=== PATIENT | female | born 1980 | race Caucasian/White ===

== ENCOUNTER 2016-11-30 18:46 | Emergency (ER) | payer BC, OTHER ==
[~2016-11-30] VITALS: Ht 152.4 cm; Wt 8.0 kg
[2016-11-30 18:59] VITALS: Ht 152.4 cm; Wt 8.0 kg
[2016-11-30] MEDS ORDERED: IBUPROFEN 600 MG TAB PO STA (19:15)
[2016-11-30] MEDS ORDERED: ACETAMINOPHEN IV 1,000 MG in EMPTY BAG 0 ML IV STA (19:15)
[2016-11-30] MEDS ORDERED: SODIUM CHLORIDE 0.9% 1000ML 1,000 ML IV STA (19:15)
--- NOTE | 2016-11-30 19:26 | EMERGENCY ROOM VISIT NOTE ---
History First contact with patient: 19:09 Chief Complaint: FEVER Stated Complaint: HIGH FEVER, NAUSEA History of Present Illness The patient is a 36 year old female who presents to the Emergency Room with complaints of fever. The patient states that when she picked her son up from preschool today, he began to complain of feeling ill. He had a fever and has had vomiting. The patient states that she felt nauseated around 11 AM and around noon she began to have worsening nausea. She also had a fever. She states that her temperature was as high as 104.9F. She reports a sore throat and feeling dizzy. The patient rates her discomfort a 2/10. The patient did not take any antipyretics. She contacted her family doctor and was referred to the emergency department. She denies any neck pain or neck stiffness. She denies any pain in her chest, trouble breathing or cough. She denies any abdominal pain. She denies any urinary symptoms. Review of Systems A 10 system review of systems was completed with positives and pertinent negatives listed in the HPI. Past Medical/Surgical History patient denies Social History Smoking Status: Never Smoker Housing Status: lives with family Current/Historical Medications No Active Prescriptions or Reported Meds Physical Exam Vital Signs Date Time Temp Pulse Resp B/P (MAP) Pulse Ox O2 Delivery O2 Flow Rate FiO2 11/30/16 21:44 101 18 115/51 97 11/30/16 20:45 38.9 117 18 116/50 97 Room Air 11/30/16 18:59 38.7 113 20 152/72 98 Room Air Physical Exam VITALS: Vitals are noted on the nurse's note and reviewed by myself. The patient's temperature is 38.7C. Her heart rate is 113 bpm. GENERAL: This is a 36-year-old female, in no acute distress, nondiaphoretic, well-developed well-nourished. SKIN: The skin was without rashes, erythema, edema, or bruising. Her cheeks are flushed. There is no tenting of the skin. Capillary reflex less than 2 seconds. HEAD: Normocephalic atraumatic. EARS: External auditory canals clear, tympanic membranes pearly rosales without erythema or effusion bilaterally. EYES: Pupils equal round and reactive to light and accommodation. Conjunctivae without injection, sclerae without icterus. Extraocular movements intact. NOSE: Patent, turbinates without inflammation or discharge. MOUTH: Mucous membranes moist. Tonsils are not enlarged. Mild posterior pharyngeal erythema. Uvula midline. Airway patent. Tongue does not deviate. NECK: Supple without nuchal rigidity. No lymphadenopathy. No thyromegaly. Cervical spine is nontender. No JVD. HEART: Regular rate and rhythm without murmurs gallops or rubs. LUNGS: Clear to auscultation bilaterally without wheezes, rales or rhonchi. No retractions or accessory muscle use. ABDOMEN: Positive bowel sounds x 4. Soft, nontender, without masses or organomegaly. MUSCULOSKELETAL: No muscle atrophy, erythema, or edema noted. Full range of motion in all extremities. No tenderness to palpation. Normal gait. Strength 5/5 throughout. NEURO: Patient was alert and oriented to person place and time. No focal neurological deficits. Medical Decision & Procedures ER Provider Diagnostic Interpretation: CHEST 2 VIEWS ROUTINE CLINICAL HISTORY: Fever. COMPARISON STUDY: No previous studies for comparison. FINDINGS: Lung volumes are normal. No pneumothorax or pleural effusion is present. There is no consolidation to suggest pneumonia. Pulmonary vascularity is normal. Cardiomediastinal silhouette is normal. IMPRESSION: No acute cardiopulmonary findings. Laboratory Results 11/30/16 19:31 Red Blood Count 4.35, Mean Corpuscular Volume 85.1, Mean Corpuscular Hemoglobin 28.5, Mean Corpuscular Hemoglobin Concent 33.5, Mean Platelet Volume 10.5, Neutrophils (%) (Auto) 91.6, Lymphocytes (%) (Auto) 6.3, Monocytes (%) (Auto) 1.9, Eosinophils (%) (Auto) 0.1, Basophils (%) (Auto) 0.0, Neutrophils # (Auto) 6.71, Lymphocytes # (Auto) 0.46, Monocytes # (Auto) 0.14, Eosinophils # (Auto) 0.01, Basophils # (Auto) 0.00 11/30/16 19:31 Test 11/30/16 19:31 11/30/16 19:32 11/30/16 19:39 White Blood Count 7.33 K/uL (4.8-10.8) Red Blood Count 4.35 M/uL (4.2-5.4) Hemoglobin 12.4 g/dL (12.0-16.0) Hematocrit 37.0 % (37-47) Mean Corpuscular Volume 85.1 fL (80-100) Mean Corpuscular Hemoglobin 28.5 pg (25-34) Mean Corpuscular Hemoglobin Concent 33.5 g/dl (32-36) Platelet Count 155 K/uL (130-400) Mean Platelet Volume 10.5 fL (7.4-10.4) Neutrophils (%) (Auto) 91.6 % Lymphocytes (%) (Auto) 6.3 % Monocytes (%) (Auto) 1.9 % Eosinophils (%) (Auto) 0.1 % Basophils (%) (Auto) 0.0 % Neutrophils # (Auto) 6.71 K/uL (1.4-6.5) Lymphocytes # (Auto) 0.46 K/uL (1.2-3.4) Monocytes # (Auto) 0.14 K/uL (0.11-0.59) Eosinophils # (Auto) 0.01 K/uL (0-0.5) Basophils # (Auto) 0.00 K/uL (0-0.2) RDW Standard Deviation 41.3 fL (36.4-46.3) RDW Coefficient of Variation 13.3 % (11.5-14.5) Immature Granulocyte % (Auto) 0.1 % Immature Granulocyte # (Auto) 0.01 K/uL (0.00-0.02) Anion Gap 9.0 mmol/L (3-11) Est Creatinine Clear Calc Drug Dose 10.9 ml/min Estimated GFR () 94.2 Estimated GFR (Non- 81.2 BUN/Creatinine Ratio 8.7 (10-20) Calcium Level 8.9 mg/dl (8.5-10.1) Total Bilirubin 0.6 mg/dl (0.2-1) Aspartate Amino Transf (AST/SGOT) 20 U/L (15-37) Alanine Aminotransferase (ALT/SGPT) 21 U/L (12-78) Alkaline Phosphatase 70 U/L (45-117) Total Protein 7.3 gm/dl (6.4-8.2) Albumin 3.9 gm/dl (3.4-5.0) Globulin 3.4 gm/dl (2.5-4.0) Albumin/Globulin Ratio 1.2 (0.9-2) Influenza Type A Antigen Neg for Influ A (NEG) Influenza Type B Antigen Neg for Influ B (NEG) Urine Color YELLOW Urine Appearance CLEAR (CLEAR) Urine pH 6.0 (4.5-7.5) Urine Specific [place] 1.010 (1.000-1.030) Urine Protein NEG (NEG) Urine Glucose (UA) NEG (NEG) Urine Ketones NEG (NEG) Urine Occult Blood NEG (NEG) Urine Nitrite NEG (NEG) Urine Bilirubin NEG (NEG) Urine Urobilinogen NEG (NEG) Urine Leukocyte Esterase NEG (NEG) Medications Administered Medications (Trade) Dose Ordered Sig/Rajwinder Route Start Time Stop Time Status Last Admin Dose Admin Sodium Chloride 1,000 ml @ 999 mls/hr Q1H1M STAT IV 11/30/16 19:15 11/30/16 20:15 DC 11/30/16 19:35 999 MLS/HR Acetaminophen 1000 mg/Empty Bag 100 ml @ 400 mls/hr ONE STAT IV 11/30/16 19:15 11/30/16 19:29 DC 11/30/16 20:08 400 MLS/HR Ibuprofen (Motrin Tab) 600 mg NOW STAT PO 11/30/16 19:15 11/30/16 19:18 DC 11/30/16 20:08 600 MG Procedure The patient was monitored on a groundwater monitoring technician. She initially had a sinus tachycardia but that improved after the above treatment. ED Course The patient was seen and examined. Previous visits were reviewed. The patient was febrile and tachycardic upon arrival. She did not have a leukocytosis. She does not have any significant electrolyte abnormalities. Urinalysis is negative for urinary tract infection. Rapid strep was negative. Influenza was negative. Chest x-ray does not reveal any obvious infiltrate. The patient was hydrated with normal saline solution She was given 600 mg oral Motrin She was given 1 g IV Tylenol The patient's symptoms markedly improved. She was initially tachycardic but her heart rate improved to 101 bpm. Her temperature improved to 37.1C prior to discharge. The patient's cheeks were flushed but she states that this is baseline for her. This likely represents a viral illness. The patient's son has similar symptoms that also started today. She presented to the emergency department because her temperature had been so high at home. She does not have any headache, neck pain, neck stiffness, nuchal rigidity to suggest meningitis. She does not have any chest pain, trouble breathing or cough. She does not have any abdominal pain, abdominal tenderness on examination. The patient was encouraged to alternate Tylenol and Motrin every 3 hours. She should return to the ER with any worsening symptoms. Otherwise, she should recheck with her family doctor by the end of the week if symptoms are not improving. The case was discussed with Dr. Wilson who agrees with the assessment and treatment plan. Medical Decision The differential diagnosis includes influenza, strep pharyngitis, meningitis, pneumonia, bacteremia, SIRS, viral illness, urinary tract infection, among others Medication Reconcilliation Current Medication List: was personally reviewed by me Blood Pressure Screening Patient's blood pressure: Normal blood pressure Blood pressure disposition: Did not require urgent referral Impression Primary Impression: Febrile illness Departure Information Dispostion Home / Self-Care Condition GOOD Prescriptions No Active Prescriptions or Reported Meds Referrals Sukhjinder Franco M.D. (PCP) Patient Instructions ED Fever Control, [facility] Additional Instructions Increase fluids Alternate Tylenol and Motrin every 3 hours Rest Return with any changing or worsening symptoms such as abdominal pain, headache , neck pain, neck stiffness or generalized worsening symptoms Otherwise, recheck with the family doctor at the end of the week if no improvement
[2016-11-30 19:46] LABS: COMPLETE YES; EOS % 0.1 %; IG% 0.1 %; LYMPH % 6.3 %; LYMPH ABS # 0.46 K/uL (1.2-3.4); MEAN CELL VOLUME 85.1 fL (80-100); MEAN CORPUSCULAR HEMOGLOBIN 28.5 pg (25-34); MEAN CORPUSCULAR HGB CONC 33.5 g/dl (32-36); MEAN PLATELET VOLUME 10.5 fL (7.4-10.4); MONO % 1.9 %; NEUT % 91.6 %; PLATELET COUNT 155 K/uL (130-400); RED BLOOD COUNT 4.35 M/uL (4.2-5.4); WHITE BLOOD COUNT 7.33 K/uL (4.8-10.8)
[2016-11-30 19:51] LABS: URINE APPEARANCE CLEAR (CLEAR); URINE BILIRUBIN NEG (NEG); URINE COLOR YELLOW; URINE NITRITE NEG (NEG); UROBILINOGEN NEG (NEG); ZZUR CULT IF INDIC CLEAN CATCH NO
[2016-11-30 19:52] LABS: MANUAL MICROSCOPIC REQUIRED? NO; REVIEW REQ? NO
[2016-11-30 20:05] LABS: BUN/CREATININE RATIO 8.7 (10-20); CALCIUM 8.9 mg/dl (8.5-10.1); CREATININE 0.92 mg/dl (0.60-1.20); POTASSIUM 3.3 mmol/L (3.5-5.1)
[2016-11-30 20:07] LABS: ALB/GLOB RATIO 1.2 (0.9-2)
--- NOTE | 2016-11-30 20:16 | DIAGNOSTIC IMAGING REPORT ---
CHEST 2 VIEWS ROUTINE CLINICAL HISTORY: Fever. COMPARISON STUDY: No previous studies for comparison. FINDINGS: Lung volumes are normal. No pneumothorax or pleural effusion is present. There is no consolidation to suggest pneumonia. Pulmonary vascularity is normal. Cardiomediastinal silhouette is normal. IMPRESSION: No acute cardiopulmonary findings. Electronically signed by: Nicko Cody M.D. 11/30/2016 8:14 PM Dictated Date/Time: 11/30/2016 8:14 PM
[2016-11-30 20:45] VITALS: TEMP 38.9
[2016-11-30 21:44] VITALS: BP 115/51; PULSE 101; O2SAT 97
== END 2016-11-30 21:44 | disposition home or self-care (01) ==
LOC: C.EDB 18:48 → C.EDC 21:44
DX: R50.9 Fever, unspecified (principal)

== ENCOUNTER → 2017-04-20 | Outpatient (CLI) | payer BC | END | disposition home or self-care (01) | LOC: C.PAPS 15:56 | PROVIDERS: ATTEND Obstetrics & Gynecology | DX: Z01.419 Encounter for gynecological examination (general) (routine) without abnormal findings (principal) ==

== ENCOUNTER 2018-05-02 07:47 | Inpatient (IN) ==
[2018-05-02] MEDS ORDERED: LACTATED RINGER'S 1,000 ML IV SCH (08:00)
[2018-05-02] MEDS ORDERED: LACTATED RINGER'S 1,000 ML IV PRN ×3 (08:00→18:33)
[2018-05-02] MEDS ORDERED: OXYTOCIN 30 UNITS/500 ML BAG IV PRN ×2 (08:00→08:01)
[2018-05-02 08:21] LABS: Hematocrit (blood only) 35.4 % (37-47); Hemoglobin 11.8 g/dL (12.0-16.0); Mean Corpuscular Volume 86.3 fL (80-100); Mean Platelet Volume 11.3 fL (7.4-10.4); Platelet Count 143 K/uL (130-400); RDW Coefficient of Variation 14.8 % (11.5-14.5); RDW Standard Deviation 45.9 fL (36.4-46.3); White Blood Count 10.65 K/uL (4.8-10.8)
[2018-05-02 08:22] LABS: Mean Corpuscular Hgb Conc 33.3 g/dL (32-36)
--- NOTE | 2018-05-02 08:25 | History & Physical Report ---
Date of Service May 02, 2018 Assessment & Plan (1) Encounter for induction of labor: Pt is a 38 year old at 39+1 for induction of labor 2/2 hx of fast labor with GBS + mother. - LR @ 125 - Penicillin G IV q4h until delivery - Pitocin 30 units in 500 mls @ 1 mls/hr -> up by 2 - Monitor FHT/toco - Monitor BP - Routine labor care - Anticipate Vaginal , Expectant management History of Present Illness Primary Care Provider: Sukhjinder Mccrackenmeet Pt is a 38 year old with lmp of 08/01/2017 and EDC of 05/08/2018 confirmed by 1st trimester ultrasound on 09/28/2017 at 9+0 who presents at 39+1 for induction of labor 2/2 hx of fast labor with GBS + mother. She currently denies contractions nausea, vomiting, RUQ pain, swelling, headache, blurred vision, vaginal bleeding, or decreased movement. course was significant for hx GBS+and rapid labor without time for administration of abx. Cervical exam today 1.5/50/-3 soft and mid. Pt resting comfortably in bed no acu te complaints. labs First Visit: 16+[address] 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 GYNHX: menearche @ 16, monthly cycles 27-28 days, normal amount and duration, neg pap, no hx PID or STDS PMHX: wisdom teeth extraction, tonsillectomy, depression no meds, chickenpox Allergies: NKDA Review of Systems All systems reviewed & are unremarkable except as noted in HPI & below Physical Exam Constitutional: WD/WN, vitals as above Eyes: normal visual lockett by confrontation Neck: trachea midline, no thyromegaly normal visual inspection Respiratory: normal respiratory effort, lungs clear to auscultation Cardiovascular: Rate/Rhythm: regular rate and regular rhythm Extremities: no calf tenderness Gastrointestinal (Abdomen): normal bowel sounds, soft, nontender, no hepatosplenomegaly (Gravid Belly ) Skin: no rashes, warm and dry Results & Data Laboratory Results 05/02/18 Range/Units 08:12 WBC 10.65 (4.8-10.8) K/uL RBC 4.10 L (4.2-5.4) M/uL Hgb 11.8 L (12.0-16.0) g/dL Hct 35.4 L (37-47) % MCV 86.3 (80-100) fL MCH 28.8 (25-34) pg MCHC 33.3 (32-36) g/dL RDW Std Deviation 45.9 (36.4-46.3) fL RDW Coeff of Pelon 14.8 H (11.5-14.5) % Plt Count 143 (130-400) K/uL MPV 11.3 H (7.4-10.4) fL Medications Administered Current Inpatient Medications Lactated Ringer's (Lr) 1,000 mls @ 999 mls/hr IV .Q1H1M PRN PRN Reason: (Pre-Anesthesia) Stop: 06/01/18 07:59 Lactated Ringer's (Lr) 1,000 mls @ 125 mls/hr IV .Q8H BARBARA Stop: 05/04/18 07:59 Oxytocin (Pitocin) 30 units in 500 mls @ 1 mls/hr IV .Q24H PRN; Protocol PRN Reason: Labor Induction/Augmentation Stop: 05/04/18 08:00 Oxytocin (Pitocin) 30 units in 500 mls @ 333.333 mls/hr IV .Q1H30M PRN; Protocol PRN Reason: Bleeding Control Stop: 06/01/18 07:59 Penicillin G Potassium 3 mu/ (Dextrose) 106 mls @ 100 mls/hr IV Q4H PRN PRN Reason: Give until delivery Stop: 05/12/18 08:00 Penicillin G Potassium 6 mu/ (Dextrose) 262 mls @ 262 mls/hr IV NOW STA Stop: 05/02/18 09:00 Lactated Ringer's (Lr) 1,000 mls @ 999 mls/hr IV .Q1H1M PRN PRN Reason: Tachysystole Stop: 05/04/18 08:00 Code Status & VTE Plan Code Status Full Code Supervising Physician Co-Signing Physician Notes This patient is not GBS positive. She does have a history of an with GBS sepsis therefore is indicated for prophylactic antibiotics during this delivery without any screening for or regard to current GBS status. IOL will proceed with PCN IV per protocol, pitocin titration per protocol, and AROM after 2nd dose Abx. Resident Activity Tracking Resident Involvement: Resident Care Provided Care Provided: Adult Hospital Medicine
[2018-05-02] MEDS ORDERED: PENICILLIN G POTASSIUM 6 MU in DEXTROSE 5% 250 ML IV ONE (08:45)
[2018-05-02] MEDS: PENICILLIN G POTASSIUM 3 MU in DEXTROSE 5% 100 ML IV PRN ×2 (12:42→16:48)
--- NOTE | 2018-05-02 14:44 | Labor Progress Brief Note ---
Date of Service May 02, 2018 Subjective Delayed note due to other patient care. Tolerating contractions well. Assessment & Plan (1) Encounter for induction of labor: Continue pitocin, GBS abx, epidural on request. Physical Exam Vital Signs (Past 24 Hours): Last Vital Signs Temp 36.9 C 05/02/18 11:15 Pulse 74 05/02/18 14:15 Resp 20 05/02/18 14:14 BP 124/61 05/02/18 14:15 Physical Exam: FHT Cat 1 Ctx Q2m Pit @ 17 at time of exam. AROM clear fluid Cvx 3/80/-2
[2018-05-02] MEDS ORDERED: ePHEDrine sulfate 50 MG/ML AMP ONE (17:26)
[2018-05-02] MEDS ORDERED: BUPIVACAINE 0.25% 30 ML VIAL ONE (17:26)
[2018-05-02] MEDS ORDERED: fentaNYL citrate 100 MCG/2 ML VIAL ONE (17:27)
[2018-05-02] MEDS ORDERED: fentaNYL 2MCG/ML ROPIV 1.25MG/ML 100 ML BAG EPI ONE (17:27)
--- NOTE | 2018-05-02 17:48 | Anesthesiology Consultation ---
Date of Service May 02, 2018 Assessment & Plan Chart Review Chart Review: Patient NOT seen in Pre Admission Testing and Acceptable Risk for Labor Epidural Consults Requested none ASA ASA2 Proposed Anesthesia Anesthesia Type: Labor Epidural Risk / Benefits Reviewed With: PT / POA / Parent / Guardian, Accepts Plan and Informed Consent Obtained NPO Date Last Intake of Fluids: 05/02/18 Time Last Intake of Fluids: 18:29 Date Last Intake of Solids: 05/02/18 Time Last Intake of Solids: 07:00 History Height/Weight Height: 5 ft 8 in Weight: 92.986 kg Allergies Allergy/AdvReac Type Severity Reaction Status Date / Time No Known Allergies Allergy Unverified 11/30/16 19:04 Medications Home Medications Medication Instructions Recorded Confirmed Last Taken PNV [id number]#[id number]-ferrous fumarate-FA 1 mg PO DAILY 05/02/18 05/02/18 05/01/18 08:00 [] diphenhydramine HCl [Benadryl] 25 mg PO HS PRN 05/02/18 05/02/18 05/01/18 22:00 Active Medications Generic Name Dose Route Start Last Admin Trade Name Freq PRN Reason Stop Dose Admin Lactated Ringer's 1,000 mls @ 125 mls/hr 05/02/18 08:00 05/02/18 18:23 Lr IV 05/04/18 07:59 125 mls/hr .Q8H BARBARA Infusion Oxytocin 30 units in 500 mls @ 19 mls/hr 05/02/18 08:01 05/02/18 15:10 Pitocin IV 05/04/18 08:00 1.14 units/hr .Q24H PRN 19 mls/hr Labor Induction/Augmentation Titration Protocol 1.14 UNITS/HR Penicillin G Potassium 3 mu/ 106 mls @ 100 mls/hr 05/02/18 12:00 05/02/18 16: 48 Dextrose IV 05/12/18 11:59 100 mls/hr Q4H PRN Administration Give until delivery Lactated Ringer's 1,000 mls @ 999 mls/hr 05/02/18 08:01 05/02/18 18:23 Lr IV 05/04/18 08:00 Infused .Q1H1M PRN Titration Tachysystole Past Medical History Medical History Depression 2-3 years ago; was on meds but not currently [place] teeth removed 1999 Past Family History Family History Grandmother (Maternal) Diabetes Grandfather (Maternal) Cancer Father Cancer Past Surgical History Surgical History Hx of tonsillectomy 1998 Past Anesthesia History No Hx of Anesthesia Complications History of PONV No Motion Sickness Screening History of Motion Sickness: No Social History Smoking Status: Never smoker Hx Alcohol Use: No Hx Substance Use: No Exercise / Class Metabolic Activity II 4-5 Yardwork/Stairs/Walk up hill Review of Systems Patient denies history of abnormal bleeding or bleeding disorder. Patient denies active use of anticoagulants other than low dose aspirin. Patient denies numbness, tingling or weakness in upper extremities. Patient denies numbness, tingling or weakness in his lower extremities. Physical Exam Vital Signs Last Vital Signs Temp 36.5 C 05/02/18 17:00 Pulse 96 H 05/02/18 15:05 Resp 20 05/02/18 17:00 BP 136/76 05/02/18 15:05 Constitutional not obese (Gravid uterus) ENMT Mouth: no TMJ abnormality and oral opening not small Thyromental Distance: > or= 3.5 Finger Breadths Mallampati Class: II Neck normal visual inspection; neck extension not limited Respiratory normal respiratory effort Auscultation: lungs clear to auscultation bilaterally Cardiovascular Rate/Rhythm: regular rate and regular rhythm Heart Sounds: no murmur Psychiatric A+Ox3, euthymic affect Orientation: alert and oriented x 3 Testing Laboratory Results 05/02/18 08:12
[2018-05-02] MEDS ORDERED: fentaNYL 2MCG/ML ROPIV 1.25MG/ML 100 ML BAG EPI PRN (18:33)
[2018-05-02] MEDS ORDERED: NALOXONE HCL 0.4 MG/1 ML VIAL/CARP IV PRN (18:33)
[2018-05-02] MEDS ORDERED: ONDANSETRON INJ 2 MG/ML 2 ML VIAL IV PRN (18:33)
[2018-05-02] MEDS ORDERED: NALOXONE HCL 1 MG in SODIUM CHLORIDE 0.9% 1000ML 1,000 ML IV PRN (18:33)
[2018-05-02] MEDS ORDERED: NALBUPHINE HCL INJ 10 MG/ML AMP IV PRN (18:33)
[2018-05-02] MEDS ORDERED: DiphenhydrAMINE HCL 50 MG/ML VIAL IV PRN (18:33)
[2018-05-02] MEDS ORDERED: ePHEDrine sulfate 50 MG/ML AMP IV PRN (18:33)
--- NOTE | 2018-05-02 18:57 | Procedure Note ---
Vaginal Delivery Summary Date of Service May 02, 2018 Patient pushed to deliver a viable male infant in KATERYNA position, with compound presentation of L arm and a loop of umbilical cord resting over the R shoulder. Shoulders and body delivered with no difficulty. The infant was placed on the maternal abdomen, then cord was doubly clamped. FOB cut the cord. Placenta delivered S/I/3VC. A first degree laceration was repaired; it was nearly hemostatic and likely represents separation of prior scar. Repair was done in a running locked fashion with 3-0 vicryl. At completion of repair, the fundus was firm and lochia was minimal.
--- NOTE | 2018-05-02 19:26 | Anesthesiology Progress Note ---
Date of Service May 02, 2018 Anesthesia Post Procedure Vital Signs Vital Signs: Temp Pulse Resp BP Pulse Ox 05/02/18 19:18 85 125/61 05/02/18 19:03 91 H 114/68 05/02/18 18:49 100 H 127/57 L 05/02/18 18:39 95 H 166/99 H 05/02/18 18:32 79 112/64 05/02/18 18:31 78 110/57 L 05/02/18 18:30 20 05/02/18 18:27 113 H 125/68 05/02/18 18:25 105 H 138/63 05/02/18 18:23 122 H 130/73 05/02/18 18:21 98 H 114/61 05/02/18 18:19 101 H 126/66 05/02/18 18:16 96 H 140/68 05/02/18 18:15 20 05/02/18 18:14 97 H 137/67 05/02/18 18:13 105 H 136/68 05/02/18 18:11 89 135/61 05/02/18 18:09 102 H 171/66 H 05/02/18 18:07 98 H 138/75 05/02/18 18:06 105 H 83 L 05/02/18 18:04 81 130/70 05/02/18 18:02 89 134/69 05/02/18 18:00 20 05/02/18 17:51 93 H 126/71 05/02/18 17:45 86 132/75 05/02/18 17:30 20 05/02/18 17:00 36.5 C 20 05/02/18 16:30 20 05/02/18 16:00 20 05/02/18 15:30 20 05/02/18 15:05 96 H 136/76 05/02/18 15:00 36.5 C 20 05/02/18 14:15 74 124/61 05/02/18 14:14 20 05/02/18 13:19 81 122/64 05/02/18 12:18 78 111/63 05/02/18 12:17 20 05/02/18 11:16 80 117/68 05/02/18 11:15 36.9 C 20 05/02/18 10:15 78 121/64 05/02/18 10:14 20 05/02/18 09:23 82 128/61 05/02/18 09:22 20 05/02/18 08:40 36.5 C 108 H 20 132/73 Notes Mental Status: alert / awake / arousable and participated in evaluation Nausea / Vomiting: adequately controlled Pain: adequately controlled Airway Patency, RR, SpO2: stable & adequate BP & HR: stable & adequate Hydration State: stable & adequate Neuraxial Anesthesia: was administered and sensory block is resolving Anesthetic Complications: no major complications apparent and Pt Satisfied with anesthetic care
[2018-05-02] MEDS ORDERED: BENZOCAINE 20% AER SPR 82.5 GM CAN EXT PRN (21:57)
[2018-05-02] MEDS ORDERED: SUPERCREAM 0.870% 15 GM JAR EXT PRN (21:57)
[2018-05-02] MEDS ORDERED: DOCUSATE SODIUM 100 MG CAP PO SCH (21:57)
[2018-05-02] MEDS ORDERED: DIPHTHERIA/TETANUS/PERTUSSIS 0.5 ML SYR/VIAL IM ONE (21:57)
[2018-05-02] MEDS ORDERED: ACETAMINOPHEN 325 MG TAB PO PRN (21:57)
[2018-05-02] MEDS ORDERED: OXYCODONE/ACETAMINOPHEN 5mg/325mg TAB PO PRN (21:57)
[2018-05-02] MEDS ORDERED: HYDROCORTISONE ACETATE 25 MG SUPP PR PRN (21:57)
[2018-05-03] MEDS: IBUPROFEN 600 MG TAB PO PRN ×5 (00:04→17:07)
--- NOTE | 2018-05-03 02:48 | Anesthesia Procedure Note ---
Date of Service May 03, 2018 Anesthesia Post Epidural Note Vital Signs Vital Signs: Temp Pulse Resp BP Pulse Ox 36.6 C 93 H 18 121/72 83 L 05/02/18 23:15 05/02/18 23:15 05/02/18 23:15 05/02/18 23:15 05/02/18 18:06 Notes Mental Status: alert / awake / arousable and participated in evaluation Nausea / Vomiting: adequately controlled Pain: adequately controlled Airway Patency, RR, SpO2: stable & adequate BP & HR: stable & adequate Hydration State: stable & adequate Neuraxial Anesthesia: was administered and sensory block is resolving Anesthetic Complications: no major complications apparent and Pt Satisfied with anesthetic care Epidural: Removed without complications and With tip intact
[2018-05-03 06:31] LABS: Hematocrit (blood only) 34.5 % (37-47); Hemoglobin 11.5 g/dL (12.0-16.0); Mean Corpuscular Hgb Conc 33.3 g/dL (32-36); Mean Platelet Volume 10.7 fL (7.4-10.4); Platelet Count 149 K/uL (130-400); RDW Coefficient of Variation 14.6 % (11.5-14.5); RDW Standard Deviation 45.5 fL (36.4-46.3); Red Blood Count 4.01 M/uL (4.2-5.4)
--- NOTE | 2018-05-03 06:36 | Obstetrical Progress Note ---
Date of Service May 03, 2018 Assessment & Plan (1) Status post vaginal delivery: Patient is a 38 year old PPD 1 s/p -Vital signs WNL bp 100/69 T36.9, -Hemoglobin is 11.5 down from 11.8 on admission. no si/sx of anemia. -Pt is doing clinically well -Continue to encourage ambulation as tolerated, Monitor and control pain with motrin prn, Continue diet as tolerated. -Continue to support and encourage breast feeding -Routine care Supervising Physician Co-Signing Physician Notes I have examined the patient and agree with the resident note above. Subjective Pt sleeping in bed this morning. Reports no acute events overnight.Patient is tolerating her diet, ambulating, passing gas and voiding, no bm. Reports moderate lochia. Denies H/A, chest pain, palpitations and uti syx. No concerns at this time, pain is well controlled Physical Exam Vital Signs (Past 24 Hours): Last Vital Signs Temp 36.9 C 05/03/18 04:30 Pulse 76 05/03/18 04:30 Resp 18 05/03/18 04:30 BP 100/64 05/03/18 04:30 Pulse Ox 83 L 05/02/18 18:06 Constitutional: WD/WN, vitals as above Eyes: normal visual lockett by confrontation Respiratory: normal respiratory effort, lungs clear to auscultation Cardiovascular: RRR, no murmur, no edema Extremities: no calf tenderness Gastrointestinal (Abdomen): normal bowel sounds, soft, nontender, no hepatosplenomegaly (Uterus firm and 2 fingers below the umbilicus) Skin: no rashes, warm and dry Results & Data Laboratory Results 05/03/18 05/02/18 Range/Units 06:20 08:12 WBC 14.00 H 10.65 (4.8-10.8) K/uL RBC 4.01 L 4.10 L (4.2-5.4) M/uL Hgb 11.5 L 11.8 L (12.0-16.0) g/dL Hct 34.5 L 35.4 L (37-47) % MCV 86.0 86.3 (80-100) fL MCH 28.7 28.8 (25-34) pg MCHC 33.3 33.3 (32-36) g/dL RDW Std Deviation 45.5 45.9 (36.4-46.3) fL RDW Coeff of Pelon 14.6 H 14.8 H (11.5-14.5) % Plt Count 149 143 (130-400) K/uL MPV 10.7 H 11.3 H (7.4-10.4) fL Medications Administered Current Inpatient Medications Acetaminophen (Tylenol) 650 mg PO Q6H PRN PRN Reason: Pain/BOONE/Fever Stop: 06/01/18 21:56 Benzocaine (Dermoplast Pain Relieving Baird) 1 appln EXT PRN PRN PRN Reason: Perineal Discomfort Stop: 06/01/18 21:56 Cocaine HCl (Supercream 0.870%) 1 gm EXT BID PRN PRN Reason: Hemorrhoidal Inflammation Stop: 05/16/18 21:56 Docusate Sodium (Colace) 100 mg PO BID BARBARA Stop: 06/01/18 21:56 Hydrocortisone (Anusol Hc) 25 mg OR BID PRN PRN Reason: Hemorrhoidal Inflammation Stop: 06/01/18 21:56 Oxytocin (Pitocin) 30 units in 500 mls @ 333.333 mls/hr IV .Q1H30M PRN; Protocol PRN Reason: Bleeding Control Stop: 06/01/18 07:59 Ibuprofen (Motrin) 600 mg PO Q4H PRN PRN Reason: Pain/BOONE/Cramping/Fever Stop: 06/01/18 21:56 Last Admin: 05/03/18 04:44 Dose: 600 mg Documented by: Oxycodone/Acetaminophen (Percocet 5mg/325mg) 1 tab PO Q4H PRN PRN Reason: Pain not relieved by... Stop: 05/16/18 21:56 Prenat Multivit/Manager Code/Iron/Folic Ac ( Vitamin) 1 tab PO QAM [facility] Stop: 06/02/18 08:59 Resident Activity Tracking Resident Involvement: Resident Care Provided Care Provided: Adult Hospital Medicine
[2018-05-03] MEDS ORDERED: PRENATAL VITAMIN 1 TAB PO SCH (09:00)
[2018-05-03 12:00] VITALS: TEMP 97.7
[2018-05-03 17:25] VITALS: BP 125/70; PULSE 60; O2SAT 98
== END 2018-05-03 20:15 | disposition home or self-care (01) | DRG 807 ==
LOC: 4S1 07:56 → 4S2 23:05